=== PATIENT | male | born 1930 | race Caucasian/White ===

== ENCOUNTER 2017-12-28 16:10 | Emergency (ER) | payer MEDICARE ==
[~2017-12-28] VITALS: Ht 177.8 cm; Wt 74.8 kg
[~2017-12-28 16:10] MED LIST: LOSARTAN POTASS50 MG PO; METOPROLOL TART25 MG PO
== END 2017-12-28 16:59 | disposition home or self-care (01) ==
LOC: FSED 16:10
DX: L03.113 Cellulitis of right upper limb (principal); T63.481A Toxic effect of venom of other arthropod, accidental (unintentional), initial encounter; I10 Essential (primary) hypertension; Z95.810 Presence of automatic (implantable) cardiac defibrillator
CPT/HCPCS: 99283

== ENCOUNTER 2018-08-10 19:08 | Emergency (ER) | payer MEDICARE ==
[~2018-08-10] VITALS: Ht 177.8 cm; Wt 77.1 kg
[2018-08-10] MEDS ORDERED: COUMADIN2.5 MG PO (19:37)
[2018-08-10] MEDS ORDERED: ATORVASTATIN CA10 MG PO (19:37)
[2018-08-10] MEDS ORDERED: MULTI-VITAMIN1 EACH (19:37)
== END 2018-08-10 20:40 | disposition home or self-care (01) ==
LOC: FSED 19:08
DX: N30.91 Cystitis, unspecified with hematuria (principal); I10 Essential (primary) hypertension; E78.5 Hyperlipidemia, unspecified; I25.10 Atherosclerotic heart disease of native coronary artery without angina pectoris
CPT/HCPCS: 80048; 80076; 81003; 85025; 85610; 87086; 99283

== ENCOUNTER 2021-05-02 13:03 | Emergency (ER) | payer MEDICARE, OTHER ==
[~2021-05-02] VITALS: Ht 177.8 cm; Wt 77.1 kg
[~2021-05-02 13:03] MED LIST changes: +ATORVASTATIN CA10 MG PO; +COUMADIN2.5 MG PO; +MULTI-VITAMIN1 EACH
== END 2021-05-02 15:12 | disposition home or self-care (01) ==
LOC: FSED 13:24
DX: S22.31XA Fracture of one rib, right side, initial encounter for closed fracture (principal); W18.30XA Fall on same level, unspecified, initial encounter; Y92.89 Other specified places as the place of occurrence of the external cause; F03.90 Unspecified dementia, unspecified severity, without behavioral disturbance, psychotic disturbance, mood disturbance, and anxiety; I10 Essential (primary) hypertension; R94.31 Abnormal electrocardiogram [ECG] [EKG]; Z95.810 Presence of automatic (implantable) cardiac defibrillator
CPT/HCPCS: 71046; 93005; 99282

== ENCOUNTER 2021-05-16 12:22 | Emergency (ER) | payer MEDICARE, OTHER ==
[~2021-05-16] VITALS: Ht 177.8 cm; Wt 77.1 kg
== END 2021-05-16 14:20 | disposition home or self-care (01) ==
LOC: ER 12:30
DX: S00.83XA Contusion of other part of head, initial encounter (principal); W01.0XXA Fall on same level from slipping, tripping and stumbling without subsequent striking against object, initial encounter; Y93.01 Activity, walking, marching and hiking; Y92.89 Other specified places as the place of occurrence of the external cause; Z79.01 Long term (current) use of anticoagulants; F03.90 Unspecified dementia, unspecified severity, without behavioral disturbance, psychotic disturbance, mood disturbance, and anxiety; I10 Essential (primary) hypertension; I25.10 Atherosclerotic heart disease of native coronary artery without angina pectoris; Z95.810 Presence of automatic (implantable) cardiac defibrillator
CPT/HCPCS: 70450; 72125; 99283

== ENCOUNTER 2021-08-10 14:04 | Emergency (ER) | payer MEDICARE, OTHER ==
[~2021-08-10] VITALS: Ht 180.3 cm; Wt 72.6 kg
[2021-08-10] MEDS ORDERED: ACETAMINOPHEN500 MG PO (14:21)
== END 2021-08-10 15:39 | disposition home or self-care (01) ==
LOC: FSED 14:08
DX: S93.402A Sprain of unspecified ligament of left ankle, initial encounter (principal); G89.11 Acute pain due to trauma; F03.90 Unspecified dementia, unspecified severity, without behavioral disturbance, psychotic disturbance, mood disturbance, and anxiety; I25.10 Atherosclerotic heart disease of native coronary artery without angina pectoris; I10 Essential (primary) hypertension; W01.0XXA Fall on same level from slipping, tripping and stumbling without subsequent striking against object, initial encounter; Z79.899 Other long term (current) drug therapy; Z79.01 Long term (current) use of anticoagulants; Z95.810 Presence of automatic (implantable) cardiac defibrillator
CPT/HCPCS: 99283

== ENCOUNTER 2022-05-16 09:51 | Emergency (ER) | payer MEDICARE ==
[~2022-05-16] VITALS: Ht 180.3 cm; Wt 72.6 kg
[~2022-05-16 09:51] MED LIST changes: +ACETAMINOPHEN500 MG PO
[2022-05-16 10:28] LABS: BASOPHILS # (AUTO) 0.1 (0.0-0.1); BASOPHILS % 1.1 % (0.0-1.0); EOSINOPHILS # (AUTO) 0.2 (0.0-0.4); EOSINOPHILS % 4.1 % (0.0-6.0); HEMATOCRIT 44.7 % (38.2-49.6); HEMOGLOBIN 14.7 g/dL (14.0-18.0); LYMPHOCYTES # (AUTO) 1.1 (1.0-3.2); LYMPHOCYTES % 20.7 % (18.0-39.1); MEAN CORPUSCULAR HEMOGLOBIN 30.8 pg (28-32); MEAN CORPUSCULAR HGB CONC 32.9 g/dL (31-35); MEAN CORPUSCULAR VOLUME 93.7 fL (81-99); MONOCYTES # (AUTO) 0.4 (0.2-0.8); MONOCYTES % 6.7 % (4.4-11.3); NEUTROPHILS # (AUTO) 3.6 (2.1-6.9); NEUTROPHILS % 66.8 % (38.7-80.0); PLATELET COUNT 155 x10e3/uL (140-360); RED BLOOD COUNT 4.77 x10e6/uL (4.3-5.7); RED CELL DISTRIBUTION WIDTH 13.5 % (11.7-14.4)
[2022-05-16 10:58] LABS: ALBUMIN 3.7 g/dL (3.5-5.0); ALBUMIN/GLOBULIN RATIO 1.3 (0.8-2.0); ANION GAP 14.7 mmol/L (8-16); CREATININE, SERUM 1.04 mg/dL (0.72-1.25); POTASSIUM 3.7 mmol/L (3.5-5.1)
[2022-05-16 11:01] LABS: INR 3.32; PARTIAL THROMBOPLASTIN TIME 38.7 seconds (23.8-35.5)
== END 2022-05-16 13:45 | disposition home or self-care (01) ==
LOC: ER 09:59
DX: S00.83XA Contusion of other part of head, initial encounter (principal); W01.0XXA Fall on same level from slipping, tripping and stumbling without subsequent striking against object, initial encounter; Y93.01 Activity, walking, marching and hiking; Y92.89 Other specified places as the place of occurrence of the external cause; I10 Essential (primary) hypertension; I25.10 Atherosclerotic heart disease of native coronary artery without angina pectoris; F03.90 Unspecified dementia, unspecified severity, without behavioral disturbance, psychotic disturbance, mood disturbance, and anxiety; Z95.810 Presence of automatic (implantable) cardiac defibrillator
CPT/HCPCS: 36415; 70450; 72125; 72170; 80053; 85025; 85610; 85730; 99284

== ENCOUNTER 2022-06-08 21:54 | Emergency (ER) | payer MEDICARE ==
[~2022-06-08] VITALS: Ht 177.8 cm; Wt 74.8 kg
[2022-06-08] MEDS ORDERED: ONDANSETRON HCL INJ 2MG/ML 2ML 2 MG/ML VIAL IV ONE (22:45)
[2022-06-08] MEDS ORDERED: FAMOTIDINE 20 MG/2 ML VIAL IV ONE ×2 (22:45→22:48)
[2022-06-08] MEDS ORDERED: ONDANSETRON HCL INJ 2MG/ML 2ML 2 MG/ML VIAL ONE (22:48)
[2022-06-08 23:49] LABS: INR 2.7; PROTHROMBIN TIME 29.1 seconds (11.9-14.5)
[2022-06-08 23:50] LABS: PARTIAL THROMBOPLASTIN TIME 36.5 seconds (23.8-35.5)
== END 2022-06-09 00:10 | disposition home or self-care (01) ==
LOC: FSED 21:58
DX: R10.9 Unspecified abdominal pain (principal); R11.0 Nausea; R53.1 Weakness; Z72.3 Lack of physical exercise; I10 Essential (primary) hypertension; I25.10 Atherosclerotic heart disease of native coronary artery without angina pectoris; F03.90 Unspecified dementia, unspecified severity, without behavioral disturbance, psychotic disturbance, mood disturbance, and anxiety; Z95.810 Presence of automatic (implantable) cardiac defibrillator
CPT/HCPCS: 36415; 74176; 80053; 81003; 82553; 84484; 85025; 85610; 85730; 93005; 99284; J2405